=== PATIENT | male | born 1985 | race Caucasian/White ===

== ENCOUNTER 2023-01-02 19:58 | Emergency (ER) | payer BC, OTHER ==
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
[2023-01-02 20:30] LABS: Absolute Neutrophil Ct (ANC) 9.68 x10^3/uL (1.4-6.9); BASOPHIL % 0.4 % (0.0-0.4); Basophil (Absolute #) 0.05 x10^3/uL (0-0.4); Eosinophil % 0.3 % (0.00-5.0); Eosinophil (Absolute #) 0.04 x10^3/uL (0-0.5); Hematocrit 47.2 % (42-50); Hemoglobin 16.2 g/dL (12.5-18.0); IMMATURE GRAN # 0.04 x10^3u/L (0.00-0.03); IMMATURE GRAN % 0.3 % (0.00-0.4); Lymphocyte (Absolute #) 1.36 x10^3/uL (1.0-4.6); Lymphocytes % 11.6 % (24.0-44.0); Mean Corpuscular Hemoglobin 28.8 pg (26-32); Mean Corpuscular Hgb Concent. 34.3 g/dL (32-36); Mean Platelet Volume 9.2 fL (7.5-11.0); Monocyte (Absolute #) 0.51 x10^3/uL (0.0-1.3); Monocytes % 4.4 % (0.0-12.0); Platelet Count 297 x10^3/uL (150-450); Red Blood Count 5.62 x10^6/uL (4.1-5.6); Red Cell Distribution Width 12.3 % (11.5-14.0); White Blood Count 11.7 x10^3/uL (4.0-10.5)
[2023-01-02 20:37] LABS: ALBUMIN 4.9 g/dL (3.5-5.0); ALKALINE PHOSPHATASE 95 U/L (38-126); ANION GAP 17.4 MEQ/L (5-15); BLOOD UREA NITROGEN 10 mg/dL (9-20); CHLORIDE 105 mmol/L (98-107); Calcium 9.2 mg/dL (8.4-10.2); Carbon Dioxide 21 mmol/L (22-30); Creatinine 1 0.79 mg/dL (0.66-1.25); EST GLOMERULAR FILTRATION RATE > 60.0 ML/MIN; Glucose 131 mg/dL (74-106); Potassium 3.3 mmol/L (3.5-5.1); SGOT/AST 41 U/L (17-59); SGPT/ALT 53 U/L (0-50); SODIUM 140 mmol/L (137-145); Total Protein 8.4 g/dL (6.3-8.2)
[2023-01-02 21:05] LABS: Appearance Clear (Clear); Bacteria None Seen /HPF (None Seen); Bilirubin Negative (Negative); Blood Negative (Negative); Epithelial Cells None Seen /HPF (None Seen); Glucose, Urine Negative (Negative); Ketones 15 (Negative); Leukocyte Esterase Negative (Negative); Nitrite Negative (Negative); Protein,Urine Dip Negative (Negative); RBC 0-2 /HPF (0-5); Urobilinogen 0.2 mg/dL (0.2); WBC 0-2 /HPF (0-5)
[2023-01-02 21:06] LABS: ADD URINE CULTURE? NO (NO)
[2023-01-02 21:17] LABS: Amphetamine,Urine NEGATIVE (NEGATIVE); Barbiturate,Urine NEGATIVE (NEGATIVE); Benzodiazepine,Urine NEGATIVE (NEGATIVE); Cocaine,Urine NEGATIVE (NEGATIVE); Methadone,Urine NEGATIVE (NEGATIVE); Opiate,Urine NEGATIVE (NEGATIVE); PCP,Urine NEGATIVE (NEGATIVE); THC,Urine NEGATIVE (NEGATIVE)
[2023-01-02 21:37] VITALS: BP 119/86; PULSE 92; O2SAT 98
--- NOTE | 2023-01-03 08:57 | XRAY ---
Indication: Syncope. Dizziness, lightheaded, and tunnel vision. Multiple contiguous axial images obtained through the head without contrast. Comparison: None Normal appearing brain parenchyma, ventricles, and bony calvarium. Near complete opacification both ethmoid and both maxillary sinuses with fluid leveling. Mastoid air cells are clear. Impression: Pansinusitis. Otherwise normal CT head without contrast exam.
== END 2023-01-02 21:41 | disposition home or self-care (01) ==
LOC: ED 19:58
DX: R55 Syncope and collapse (principal); F41.9 Anxiety disorder, unspecified; Z63.0 Problems in relationship with spouse or partner; R07.9 Chest pain, unspecified; R06.02 Shortness of breath; R20.2 Paresthesia of skin
CPT/HCPCS: 36000; 36415; 70450; 80053; 80307; 81001; 84484; 85025; 93005; 94760; 99284

== ENCOUNTER 2023-07-25 04:10 | Observation (INO) | payer OTHER ==
[2023-07-25] MEDS ORDERED: ZOFRAN ODT 4 MG PO ONE (05:00)
[2023-07-25] MEDS ORDERED: Hydromorphone 1 mg/ml Injection IM ONE (05:00)
--- NOTE | 2023-07-25 05:00 | ERPHSYRPT ---
- History of Present Illness Historian: patient Exam Limitations: no limitations Patient Subjective Stated Complaint: RLQ pain since 1700 yesterday, steadily pain is getting worse, loose stools, Triage Nursing Assessment: pt ambulatory to bed by self with slow steady gait holding RLQ, pt alert and oriented x3, skin pwd, pt c/o RLQ pain since 1700 yesterday, pain has been steadily getting worse, pain is described at crampy/stabbing constant pain, pt states he has loose stools as well, denies any nausea, vomiting or fever, pt currently afebrile. Timing/Duration: yesterday Abdominal Pain Onset Location: RLQ Severity of Pain-Max: moderate Severity of Pain-Current: moderate Modifying Factors: Improves With: nothing Associated Symptoms: loss of appetite, other (Loose stools), No chest pain, No diarrhea, No fever/chills, No headache, No nausea, No shortness of breath, No vomiting, No weakness Previous symptoms: no prior history Hx Tetanus, Diphtheria Vaccination/Date Given: Yes Hx Influenza Vaccination/Date Given: No Hx Pneumococcal Vaccination/Date Given: No Immunizations Up to Date: No <GLENNY BARKER - Last Filed: 07/25/23 07:04> <KAYLAH LANG - Last Filed: 07/25/23 08:11> - History of Present Illness Time Seen by Provider: 07/25/23 04:35 Physician History: This is a 37-year-old white male patient of Dr. Emery who has no known drug allergies and takes no medications and presents with right lower quadrant abdominal pain that began at 1700 on 07/24/2023. The pain is described as st abbing crampy constant. The intensity has increased in the last 12 hours. There is been associated loose stools. He denies nausea vomiting. He has never had this pain before. Patient has never had abdominal surgeries in the past. (GLENNY BARKER) Allergies/Adverse Reactions: No Known Drug Allergies Allergy (Verified 07/25/23 04:21) Home Medications: No Reportable Medications [No Reported Medications] 01/02/23 [History] Travel Risk - International Travel Have you traveled outside of the country in past 3 weeks: No - Coronavirus Screening Are you exhibiting any of the following symptoms?: No Close contact with a COVID-19 positive Pt in past 14-21 Days: No - Vaccine Status Have you recieved a Covid-19 vaccination: No <GLENNY BARKER - Last Filed: 07/25/23 07:04> - Review of Systems Constitutional: No Symptoms Eyes: No Symptoms Ears, Nose, & Throat: No Symptoms Respiratory: No Symptoms Cardiac: No Symptoms Abdominal/Gastrointestinal: Abdominal Pain, Appetite Changes (Loose stools), Other, No Nausea, No Vomiting, No Diarrhea, No Constipation Genitourinary Symptoms: No Symptoms Musculoskeletal: No Symptoms Skin: No Symptoms Neurological: No Symptoms Psychological: No Symptoms Endocrine: No Symptoms Hematologic/Lymphatic: No Symptoms Immunological/Allergic: No Symptoms All Other Systems: Reviewed and Negative <GLENNY BARKER - Last Filed: 07/25/23 07:04> - Past Medical History Pertinent Past Medical History: Yes Other Medical History: collapsed lung at - Past Surgical History Past Surgical History: Yes Neuro Surgical History: No Pertinent History Cardiac: No Pertinent History Respiratory: No Pertinent History Gastrointestinal: No Pertinent History Genitourinary: No Pertinent History Musculoskeletal: No Pertinent History Male Surgical History: Vasectomy Other Surgical History: collapsed lung at , - Social History Smoking Status: Never smoker Exposure to second hand smoke: No Drug Use: none Patient Lives Alone: No <GLENNY BARKER - Last Filed: 07/25/23 07:04> - Physical Exam General Appearance: no apparent distress, alert, anxiety, thin Eye Exam: PERRL/EOMI, eyes nml inspection Ears, Nose, Throat Exam: normal ENT inspection, moist mucous membranes Neck Exam: normal inspection, non-tender, supple, full range of motion Respiratory Exam: normal breath sounds, lungs clear, airway intact, No chest tenderness, No respiratory distress Cardiovascular Exam: regular rate/rhythm, normal heart sounds, normal peripheral pulses Gastrointestinal/Abdomen Exam: soft, normal bowel sounds, tenderness (Right lower quadrant to palpation), guarding (Right lower quadrant to palpation), rebound (Right lower quadrant to palpation), other (Referred pain to right lower quadrant when palpating left lower quadrant) Back Exam: normal inspection, normal range of motion, No CVA tenderness, No vertebral tenderness Extremity Exam: normal inspection, normal range of motion, pelvis stable Neurologic Exam: alert, oriented x 3, cooperative, 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 as tested, normal mood/affect, nml cerebellar function, nml station & gait, sensation nml Skin Exam: normal color, warm, dry Lymphatic Exam: No adenopathy SpO2 Interpretation: normal SpO2: 100 O2 Delivery: Room Air <GLENNY BARKER - Last Filed: 07/25/23 07:04> - Nursing Vital Signs Nursing Vital Signs: Initial Vital Signs Temperature 97.0 F 07/25/23 04:23 Pulse Rate 63 07/25/23 04:23 Respiratory Rate 18 07/25/23 04:23 Blood Pressure 119/72 07/25/23 04:23 O2 Sat by Pulse Oximetry 100 07/25/23 04:23 Pain Scale Pain Intensity 2 - Course Nursing assessment & vital signs reviewed: Yes <GLENNY BARKER - Last Filed: 07/25/23 07:04> - CT Exams Abdomen/Pelvis CT Interpretation: Tele-radiologist Report (The appendix is slightly dilated measuring 8 to 10 mm with subtle inflammation.) <KAYLAH LANG - Last Filed: 07/25/23 08:11> Ordered Tests: Active Orders 24 hr Category Date Time Status IV Insertion STAT Care 07/25/23 05:27 Active ABDOMEN AND PELVIS W/0 CONTRAS [CT] Stat Exams 07/25/23 05:00 Completed AMYLASE Stat Lab 07/25/23 05:35 Completed CBC W DIFF Stat Lab 07/25/23 05:35 Completed CMP Stat Lab 07/25/23 05:35 Completed CULTURE,URINE Stat Lab 07/25/23 05:37 Received LIPASE Stat Lab 07/25/23 05:35 Completed Lactic Acid Stat Lab 07/25/23 05:35 Completed UA W/RFX UR CULTURE Stat Lab 07/25/23 05:37 Completed Medication Summary Discontinued Medications Generic Name Dose Route Start Last Admin Trade Name Freq PRN Reason Stop Dose Admin Hydromorphone HCl 1 mg 07/25/23 05:00 07/25/23 05:29 Hydromorphone 1 Mg/1ml Inj IM 07/25/23 05:01 Not Given STAT ONE Hydromorphone HCl Confirm 07/25/23 05:22 Hydromorphone 1 Mg/1ml Inj Administered 07/25/23 05:23 Dose 1 mg .ROUTE .STK-MED ONE Hydromorphone HCl 1 mg 07/25/23 05:27 07/25/23 05:29 Hydromorphone 1 Mg/1ml Inj IV 07/25/23 05:28 1 mg STAT ONE Administration Sodium Chloride 1,000 mls @ 999 mls/hr 07/25/23 05:27 07/25/23 06:57 Sodium Chloride 0.9% 1000 Ml IV 07/25/23 06:27 Infused .Q1H1M STA Infusion Piperacillin Sod/Tazobactam 100 mls @ 200 mls/hr 07/25/23 07:31 07/25/23 07:36 Sod 3.375 gm/ Sodium Chloride IV 07/25/23 08:00 200 mls/hr STAT ONE Administration Sodium Chloride Confirm 07/25/23 07:35 Sodium Chloride 100ml Mini-Bag Plus Administered 07/25/23 07:36 Dose 100 mls @ ud IV .STK-MED ONE Ondansetron HCl 4 mg 07/25/23 05:00 07/25/23 05:29 Zofran 4 Mg/Udtablet Orally Disintegrating PO 07/25/23 05:01 Not Given STAT ONE Ondansetron HCl Confirm 07/25/23 05:22 Zofran 4 Mg/Udtablet Orally Disintegrating Administered 07/25/23 05:23 Dose 4 mg .ROUTE .STK-MED ONE Ondansetron HCl 4 mg 07/25/23 05:27 07/25/23 05:29 Ondansetron Hcl 4 Mg/2 Ml Vial IV 07/25/23 05:28 4 mg STAT ONE Administration Piperacillin Sod/Tazobactam Sod Confirm 07/25/23 07:34 Piperacillin/Tazobactam Sodium 3.375 Gm Vial Administered 07/25/23 07:35 Dose 3.375 gm IV .STK-MED ONE Lab/Rad Data: Laboratory Result Diagrams 07/25/23 05:35 07/25/23 05:35 Laboratory Results 07/25/23 07/25/23 07/25/23 Range/Units 05:37 05:35 05:35 WBC (4.0-10.5) x10^3/uL RBC (4.1-5.6) x10^6/uL Hgb (12.5-18.0) g/dL Hct (42-50) % MCV (78-100) fL MCH (26-32) pg MCHC (32-36) g/dL RDW (11.5-14.0) % Plt Count (150-450) x10^3/uL MPV (7.5-11.0) fL Gran % (36.0-66.0) % Immature Gran % (Auto) (0.00-0.4) % Nucleat RBC Rel Count (0.00-0.1) % Eos # (Auto) (0-0.5) x10^3/uL Immature Gran # (Auto) (0.00-0.03) x10^3u/L Absolute Lymphs (auto) (1.0-4.6) x10^3/uL Absolute Monos (auto) (0.0-1.3) x10^3/uL Absolute Nucleated RBC (0.00-0.01) x10^3u/L Lymphocytes % (24.0-44.0) % Monocytes % (0.0-12.0) % Eosinophils % (0.00-5.0) % Basophils % (0.0-0.4) % Absolute Granulocytes (1.4-6.9) x10^3/uL Basophils # (0-0.4) x10^3/uL Sodium 140 (137-145) mmol/L Potassium 4.1 (3.5-5.1) mmol/L Chloride 108 H (98-107) mmol/L Carbon Dioxide 21 L (22-30) mmol/L Anion Gap 14.4 (5-15) MEQ/L BUN 19 (9-20) mg/dL Creatinine 0.78 (0.66-1.25) mg/dL Estimated GFR > 60.0 ML/MIN Glucose 132 H (74-106) mg/dL Lactic Acid (0.4-2.0) Calcium 9.2 (8.4-10.2) mg/dL Total Bilirubin 0.40 (0.2-1.3) mg/dL AST 36 (17-59) U/L ALT 51 H (0-50) U/L Alkaline Phosphatase 87 (38-126) U/L Serum Total Protein 7.1 (6.3-8.2) g/dL Albumin 4.3 (3.5-5.0) g/dL Amylase 50 (30-110) U/L Lipase 66 (23-300) U/L Urine Color Yellow (Yellow) Urine Appearance Turbid A (Clear) Urine pH 7.5 (4.6-8.0) Ur Specific [place] 1.020 (1.005-1.030) Urine Protein Negative (Negative) Urine Glucose (UA) Negative (Negative) mg/dL Urine Ketones 15 A (Negative) Urine Blood Negative (Negative) Urine Nitrite Negative (Negative) Urine Bilirubin Negative (Negative) Urine Urobilinogen 1.0 A (0.2) mg/dL Ur Leukocyte Esterase Negative (Negative) U Hyaline Cast (Auto) NONE SEEN (0-2) /LPF Urine Microscopic RBC 0-2 (0-5) /HPF Urine Microscopic WBC 0-2 (0-5) /HPF Ur Epithelial Cells None Seen (None Seen) /HPF Urine Bacteria Few A (None Seen) /HPF Urine Culture Reflexed YES (NO) 07/25/23 07/25/23 Range/Units 05:35 05:35 WBC 12.9 H (4.0-10.5) x10^3/uL RBC 5.06 (4.1-5.6) x10^6/uL Hgb 14.7 (12.5-18.0) g/dL Hct 44.2 (42-50) % MCV 87.4 (78-100) fL MCH 29.1 (26-32) pg MCHC 33.3 (32-36) g/dL RDW 12.3 (11.5-14.0) % Plt Count 245 (150-450) x10^3/uL MPV 9.4 (7.5-11.0) fL Gran % 84.2 H (36.0-66.0) % Immature Gran % (Auto) 0.5 H (0.00-0.4) % Nucleat RBC Rel Count 0.0 (0.00-0.1) % Eos # (Auto) 0.16 (0-0.5) x10^3/uL Immature Gran # (Auto) 0.06 H (0.00-0.03) x10^3u/L Absolute Lymphs (auto) 1.16 (1.0-4.6) x10^3/uL Absolute Monos (auto) 0.59 (0.0-1.3) x10^3/uL Absolute Nucleated RBC 0.00 (0.00-0.01) x10^3u/L Lymphocytes % 9.0 L (24.0-44.0) % Monocytes % 4.6 (0.0-12.0) % Eosinophils % 1.2 (0.00-5.0) % Basophils % 0.5 (0.0-0.4) % Absolute Granulocytes 10.85 H (1.4-6.9) x10^3/uL Basophils # 0.06 (0-0.4) x10^3/uL Sodium (137-145) mmol/L Potassium (3.5-5.1) mmol/L Chloride (98-107) mmol/L Carbon Dioxide (22-30) mmol/L Anion Gap (5-15) MEQ/L BUN (9-20) mg/dL Creatinine (0.66-1.25) mg/dL Estimated GFR ML/MIN Glucose (74-106) mg/dL Lactic Acid 1.8 (0.4-2.0) Calcium (8.4-10.2) mg/dL Total Bilirubin (0.2-1.3) mg/dL AST (17-59) U/L ALT (0-50) U/L Alkaline Phosphatase (38-126) U/L Serum Total Protein (6.3-8.2) g/dL Albumin (3.5-5.0) g/dL Amylase (30-110) U/L Lipase (23-300) U/L Urine Color (Yellow) Urine Appearance (Clear) Urine pH (4.6-8.0) Ur Specific [place] (1.005-1.030) Urine Protein (Negative) Urine Glucose (UA) (Negative) mg/dL Urine Ketones (Negative) Urine Blood (Negative) Urine Nitrite (Negative) Urine Bilirubin (Negative) Urine Urobilinogen (0.2) mg/dL Ur Leukocyte Esterase (Negative) U Hyaline Cast (Auto) (0-2) /LPF Urine Microscopic RBC (0-5) /HPF Urine Microscopic WBC (0-5) /HPF Ur Epithelial Cells (None Seen) /HPF Urine Bacteria (None Seen) /HPF Urine Culture Reflexed (NO) - Progress Progress: pain not gone completely <BARKER,GLENNY F. - Last Filed: 07/25/23 07:04> - Progress Discussed with Dr.: Kim Espitia (Case discussed with at 8:04 AM. , hospitalist, accepts admission to observation) Counseled pt/family regarding: lab results <KAYLAH LANG - Last Filed: 07/25/23 08:11> - Progress Progress Note: 07/25/23 05:12 This patient's medical issue is 1 of moderate complexity. Level of complexity and the work-up performed is based on the review of the patient's past medical history, review of the patient's medication list, review of the patient's drug allergy list, history of present illness and physical findings on examination. The work-up of this patient includes CBC, CMP, amylase, lipase, urinalysis and CAT scan of the abdomen pelvis without contrast. The nurses state that they attempted [address] an intravenous line. At this point we will provide him with intramuscular Dilaudid and Zofran 4 mg ODT. We will perform the CAT scan of the abdomen pelvis. If there is a positive surgical finding, we will need to reattempt placement of an intravenous line and provide the patient with intravenous fluid and intravenous antibiotics. This was discussed with the patient as well. 07/25/23 07:05 Transfer care this patient to Dr. Lang at shift change. He will follow-up on the CAT scan results and make final disposition. (GLENNY BARKER) Patient endorsed to Dr. Lang at approximately [address] Lang advised to follow- up on pending CT abdomen pelvis. CT abdomen pelvis resulted indicating an appendicitis with an appendicolith. Patient reassessed. He is comfortable. Patient declined additional pain medication. Vital stable Zosyn antibiotic ordered. Case discussed with at 7:19am who advises admission to medical service with general surgery on consultation. We are currently awaiting return call from medical service/hospitalist 07/25/23 07:32 Case discussed with at 8:04 AM for admission. accepts admission to observation at [facility] 07/25/23 08:04 (KAYLAH LANG) Medical Desision Making - Diagnostic Testing Diagnostic test were ordered, analyzed, and reviewed by me: Yes <GLENNY BARKER - Last Filed: 07/25/23 07:04> - Departure Departure Disposition: Home Critical Care Time: No <GLENNY BARKER - Last Filed: 07/25/23 07:04> <KAYLAH LANG - Last Filed: 07/25/23 08:11> - Departure Clinical Impression: Abdominal pain, Appendicitis, Leukocytosis Condition: Stable Referrals: AMILCAR EMERY MD [Primary Care Provider] - Follow up/PCP as directed
[2023-07-25] MEDS ORDERED: Hydromorphone 1 mg/ml Injection ONE ×3 (05:22→15:57)
[2023-07-25] MEDS ORDERED: ZOFRAN ODT 4 MG ONE (05:22)
[2023-07-25] MEDS ORDERED: Sodium Chloride 0.9% 1000 ML 1,000 ML IV STA (05:27)
[2023-07-25] MEDS ORDERED: Zofran 4 MG/2 ML VIAL IV ONE (05:27)
[2023-07-25] MEDS ORDERED: Hydromorphone 1 mg/ml Injection IV ONE ×2 (05:27→08:22)
[2023-07-25 05:40] LABS: Absolute Neutrophil Ct (ANC) 10.85 x10^3/uL (1.4-6.9); BASOPHIL % 0.5 % (0.0-0.4); Basophil (Absolute #) 0.06 x10^3/uL (0-0.4); Eosinophil % 1.2 % (0.00-5.0); Eosinophil (Absolute #) 0.16 x10^3/uL (0-0.5); Hematocrit 44.2 % (42-50); Hemoglobin 14.7 g/dL (12.5-18.0); IMMATURE GRAN # 0.06 x10^3u/L (0.00-0.03); IMMATURE GRAN % 0.5 % (0.00-0.4); Lymphocyte (Absolute #) 1.16 x10^3/uL (1.0-4.6); Mean Cell Volume 87.4 fL (78-100); Mean Corpuscular Hemoglobin 29.1 pg (26-32); Mean Corpuscular Hgb Concent. 33.3 g/dL (32-36); Mean Platelet Volume 9.4 fL (7.5-11.0); Monocyte (Absolute #) 0.59 x10^3/uL (0.0-1.3); Monocytes % 4.6 % (0.0-12.0); Neutrophil % 84.2 % (36.0-66.0); Platelet Count 245 x10^3/uL (150-450); Red Blood Count 5.06 x10^6/uL (4.1-5.6); Red Cell Distribution Width 12.3 % (11.5-14.0); White Blood Count 12.9 x10^3/uL (4.0-10.5)
[2023-07-25 05:49] LABS: Appearance Turbid (Clear); Bilirubin Negative (Negative); Blood Negative (Negative); Epithelial Cells None Seen /HPF (None Seen); Glucose, Urine Negative (Negative); Hyaline Casts NONE SEEN /LPF (0-2); Ketones 15 (Negative); Leukocyte Esterase Negative (Negative); Nitrite Negative (Negative); Ph 7.5 (4.6-8.0); Protein,Urine Dip Negative (Negative); RBC 0-2 /HPF (0-5); WBC 0-2 /HPF (0-5)
[2023-07-25 05:56] LABS: ALBUMIN 4.3 g/dL (3.5-5.0); ALKALINE PHOSPHATASE 87 U/L (38-126); ANION GAP 14.4 MEQ/L (5-15); BLOOD UREA NITROGEN 19 mg/dL (9-20); CHLORIDE 108 mmol/L (98-107); Calcium 9.2 mg/dL (8.4-10.2); Carbon Dioxide 21 mmol/L (22-30); Creatinine 1 0.78 mg/dL (0.66-1.25); EST GLOMERULAR FILTRATION RATE > 60.0 ML/MIN; Glucose 132 mg/dL (74-106); Potassium 4.1 mmol/L (3.5-5.1); SGOT/AST 36 U/L (17-59); SGPT/ALT 51 U/L (0-50); SODIUM 140 mmol/L (137-145); Total Protein 7.1 g/dL (6.3-8.2)
[2023-07-25 05:57] LABS: AMYLASE 50 U/L (30-110); LIPASE 66 U/L (23-300)
[2023-07-25 06:04] LABS: ADD URINE CULTURE? YES (NO); Bacteria Few /HPF (None Seen)
--- NOTE | 2023-07-25 07:08 | XRAY ---
CLINICAL HISTORY:RLQ ABD pain COMPARISON:None TECHNIQUE:CT scan of the abdomen and pelvis was performed without contrast. No oral contrast. Coronal and sagittal reconstructive images were also obtained. FINDINGS: Abdomen: The liver is normal in size and measures 13.5 cm. No focal or diffuse parenchymal abnormality. The portal vein, intrahepatic biliary radicals and the bile ducts are normal. The spleen, pancreas, adrenal glands are unremarkable. The kidneys are unremarkable. They are normal in size and shape. No calculi or hydronephrosis. The gallbladder is normal. No pericholecystic collection or radio dense calculi in the gall bladder. The ascending colon, the transverse colon, the descending colon, visualized small bowel loops are unremarkable. There is no evidence of significant enlargement of the mesenteric or retroperitoneal lymph nodes. Pelvis: The urinary bladder is unremarkable. The rectosigmoid colon is unremarkable. The prostate is unremarkable. The pelvic vasculature is unremarkable. No evidence of pelvic lymphadenopathy. The osseous structures in the pelvis, lower rib cage and lumbar spine show no abnormality. No lytic or sclerotic bone lesions. Slightly prominent appendix with appendicolith. IMPRESSION: The appendix is slightly dilated measuting 8 to 10mm with subtle inflammation. Findings are suggestive of appendicitis. Please correlate clinically. Electronically Signed by: Daryl Barr MD. (07/25/2023 06:06:26 END PACKER)
[2023-07-25] MEDS ORDERED: PIPERACILLIN/TAZOBACTAM 3.375 GM in Sodium Chloride 100ML MINI-BAG PLUS 100 ML IV ONE (07:31)
[2023-07-25] MEDS ORDERED: PIPERACILLIN/TAZOBACTAM IV ONE (07:34)
[2023-07-25] MEDS ORDERED: Sodium Chloride 100ML MINI-BAG PLUS 100 ML IV ONE (07:35)
--- NOTE | 2023-07-25 09:15 | PCM.HP ---
History of Present Illness - Chief Complaint Chief Complaint: Appendicitis Date: 07/25/23 History of Present Illness: is a 37 year old male with no pmhx presented to ER 07/25/23 with complaints of nausea, vomiting, and progressively worsening RLQ abdominal pain. Onset was approximately two days. Patient states that initially the pain was mild and he associated it with gas pain, but the pain became more severe, sharp and cramping in characteristic. He also endorses nausea and vomiting which started this morning. Denies fever, cough, sob, cp, DENSON, dizziness, or diarrhea. In ER patient was normotensive, afebrile, with spo2 @ 100% on RA. CT showing appendix slightly dilated measuting 8 to 10mm with subtle inflammation, with appendicolith, consistent with acute appendicitis. Lab findings remarkable for leukocytosis with wbc at 12.9, otherwise unremarkable. Urinalysis noting microscopic wbc, ketones, and urobilogen, culture reflexed and pending. Patient was given zosyn,dilaudid, zofran, and IVF bolus. PCP:JENNIFER Edgar Consulted: Leuking Code Status: Full code - Review of Systems Constitutional: Fatigue Eyes: No Symptoms Ears, Nose, & Throat: No Symptoms Respiratory: No Symptoms Cardiac: No Symptoms Abdominal/Gastrointestinal: Abdominal Pain, Nausea, Vomiting, Other (loose stools) Genitourinary Symptoms: No Symptoms Musculoskeletal: No Symptoms Skin: No Symptoms Neurological: No Symptoms Psychological: No Symptoms Endocrine: No Symptoms Hematologic/Lymphatic: No Symptoms Immunological/Allergic: No Symptoms Medications & Allergies Home Medications: Home Medication List No Reportable Medications [No Reported Medications] 01/02/23 [History Confirmed 07/25/23] Allergies/Adverse Reactions: Allergies Allergy/AdvReac Type Severity Reaction Status Date / Time No Known Drug Allergies Allergy Verified 07/25/23 04:21 - Past Medical History Past Medical History: Yes Comment: collapsed lung at - Past Surgical History Past Surgical History: Yes Neuro Surgical History: No Pertinent History Cardiac History: No Pertinent History Respiratory Surgery: No Pertinent History GI Surgical History: No Pertinent History Genitourinary Surgical Hx: No Pertinent History Musculskeletal Surgical Hx: No Pertinent History Male Surgical History: Vasectomy Other Surgical History: collapsed lung at , - Social History Smoking Status: Never smoker Exposure to second hand smoke: No Alcohol: Rarely Drug Use: none - Physical Exam Vital Signs: Vital Signs - 24 hr Temp Pulse Resp BP BP Pulse Ox 07/25/23 07:10 100 07/25/23 07:00 79 16 122/79 97 07/25/23 06:00 88 17 113/76 98 07/25/23 05:27 66 16 110/76 98 07/25/23 04:23 97.0 F 63 18 119/72 100 General Appearance: mild distress Neurologic Exam: alert, oriented x 3, cooperative Eye Exam: PERRL/EOMI Ears, Nose, Throat Exam: normal ENT inspection Neck Exam: normal inspection Respiratory Exam: normal breath sounds, lungs clear Cardiovascular Exam: regular rate/rhythm, normal heart sounds Gastrointestinal/Abdomen Exam: soft, normal bowel sounds, tenderness, guarding (RLQ TTP), rebound (referred pain to RLQ with palpation to LLQ) Rectal Exam: not done Back Exam: normal inspection Extremity Exam: normal inspection Skin Exam: normal color Results - Labs Lab/Micro Results: Lab Results-Last 24 Hours 07/25/23 07/25/23 07/25/23 Range/Units 05:35 05:35 05:35 WBC 12.9 H (4.0-10.5) x10^3/uL RBC 5.06 (4.1-5.6) x10^6/uL Hgb 14.7 (12.5-18.0) g/dL Hct 44.2 (42-50) % MCV 87.4 (78-100) fL MCH 29.1 (26-32) pg MCHC 33.3 (32-36) g/dL RDW 12.3 (11.5-14.0) % Plt Count 245 (150-450) x10^3/uL MPV 9.4 (7.5-11.0) fL Gran % 84.2 H (36.0-66.0) % Immature Gran % (Auto) 0.5 H (0.00-0.4) % Nucleat RBC Rel Count 0.0 (0.00-0.1) % Eos # (Auto) 0.16 (0-0.5) x10^3/uL Immature Gran # (Auto) 0.06 H (0.00-0.03) x10^3u/L Absolute Lymphs (auto) 1.16 (1.0-4.6) x10^3/uL Absolute Monos (auto) 0.59 (0.0-1.3) x10^3/uL Absolute Nucleated RBC 0.00 (0.00-0.01) x10^3u/L Lymphocytes % 9.0 L (24.0-44.0) % Monocytes % 4.6 (0.0-12.0) % Eosinophils % 1.2 (0.00-5.0) % Basophils % 0.5 (0.0-0.4) % Absolute Granulocytes 10.85 H (1.4-6.9) x10^3/uL Basophils # 0.06 (0-0.4) x10^3/uL Sodium (137-145) mmol/L Potassium (3.5-5.1) mmol/L Chloride (98-107) mmol/L Carbon Dioxide (22-30) mmol/L Anion Gap (5-15) MEQ/L BUN (9-20) mg/dL Creatinine (0.66-1.25) mg/dL Estimated GFR ML/MIN Glucose (74-106) mg/dL Lactic Acid 1.8 (0.4-2.0) Calcium (8.4-10.2) mg/dL Total Bilirubin (0.2-1.3) mg/dL AST (17-59) U/L ALT (0-50) U/L Alkaline Phosphatase (38-126) U/L Serum Total Protein (6.3-8.2) g/dL Albumin (3.5-5.0) g/dL Amylase 50 (30-110) U/L Lipase 66 (23-300) U/L Urine Color (Yellow) Urine Appearance (Clear) Urine pH (4.6-8.0) Ur Specific [place] (1.005-1.030) Urine Protein (Negative) Urine Glucose (UA) (Negative) mg/dL Urine Ketones (Negative) Urine Blood (Negative) Urine Nitrite (Negative) Urine Bilirubin (Negative) Urine Urobilinogen (0.2) mg/dL Ur Leukocyte Esterase (Negative) U Hyaline Cast (Auto) (0-2) /LPF Urine Microscopic RBC (0-5) /HPF Urine Microscopic WBC (0-5) /HPF Ur Epithelial Cells (None Seen) /HPF Urine Bacteria (None Seen) /HPF Urine Culture Reflexed (NO) 07/25/23 07/25/23 Range/Units 05:35 05:37 WBC (4.0-10.5) x10^3/uL RBC (4.1-5.6) x10^6/uL Hgb (12.5-18.0) g/dL Hct (42-50) % MCV (78-100) fL MCH (26-32) pg MCHC (32-36) g/dL RDW (11.5-14.0) % Plt Count (150-450) x10^3/uL MPV (7.5-11.0) fL Gran % (36.0-66.0) % Immature Gran % (Auto) (0.00-0.4) % Nucleat RBC Rel Count (0.00-0.1) % Eos # (Auto) (0-0.5) x10^3/uL Immature Gran # (Auto) (0.00-0.03) x10^3u/L Absolute Lymphs (auto) (1.0-4.6) x10^3/uL Absolute Monos (auto) (0.0-1.3) x10^3/uL Absolute Nucleated RBC (0.00-0.01) x10^3u/L Lymphocytes % (24.0-44.0) % Monocytes % (0.0-12.0) % Eosinophils % (0.00-5.0) % Basophils % (0.0-0.4) % Absolute Granulocytes (1.4-6.9) x10^3/uL Basophils # (0-0.4) x10^3/uL Sodium 140 (137-145) mmol/L Potassium 4.1 (3.5-5.1) mmol/L Chloride 108 H (98-107) mmol/L Carbon Dioxide 21 L (22-30) mmol/L Anion Gap 14.4 (5-15) MEQ/L BUN 19 (9-20) mg/dL Creatinine 0.78 (0.66-1.25) mg/dL Estimated GFR > 60.0 ML/MIN Glucose 132 H (74-106) mg/dL Lactic Acid (0.4-2.0) Calcium 9.2 (8.4-10.2) mg/dL Total Bilirubin 0.40 (0.2-1.3) mg/dL AST 36 (17-59) U/L ALT 51 H (0-50) U/L Alkaline Phosphatase 87 (38-126) U/L Serum Total Protein 7.1 (6.3-8.2) g/dL Albumin 4.3 (3.5-5.0) g/dL Amylase (30-110) U/L Lipase (23-300) U/L Urine Color Yellow (Yellow) Urine Appearance Turbid A (Clear) Urine pH 7.5 (4.6-8.0) Ur Specific [place] 1.020 (1.005-1.030) Urine Protein Negative (Negative) Urine Glucose (UA) Negative (Negative) mg/dL Urine Ketones 15 A (Negative) Urine Blood Negative (Negative) Urine Nitrite Negative (Negative) Urine Bilirubin Negative (Negative) Urine Urobilinogen 1.0 A (0.2) mg/dL Ur Leukocyte Esterase Negative (Negative) U Hyaline Cast (Auto) NONE SEEN (0-2) /LPF Urine Microscopic RBC 0-2 (0-5) /HPF Urine Microscopic WBC 0-2 (0-5) /HPF Ur Epithelial Cells None Seen (None Seen) /HPF Urine Bacteria Few A (None Seen) /HPF Urine Culture Reflexed YES (NO) - Radiology Impressions Radiology Exams & Impressions: Radiology Procedures Category Date Time Status ABDOMEN AND PELVIS W/0 CONTRAS [CT] Stat Exams 07/25/23 05:00 Completed Assessment/Plan (1) Appendicitis Current Visit: No Status: Acute Qualifiers: Appendicitis type: acute appendicitis Assessment & Plan: CT imaging reviewed as noted in HPI -General surgery consult, plan for surgical intervention this evening -NPO -IV abx zosyn -Pain management -CMP, CBC -IVF -Anti-emetics Code(s): K37 - UNSPECIFIED APPENDICITIS (2) Abdominal pain Current Visit: No Status: Acute Assessment & Plan: -secondary to appendicitis, see appendicitis Code(s): R10.9 - UNSPECIFIED ABDOMINAL PAIN (3) Leukocytosis Current Visit: No Status: Acute Assessment & Plan: -Most likely secondary to infection/appendicitis, See appendicitis Code(s): D72.829 - ELEVATED WHITE BLOOD CELL COUNT, UNSPECIFIED (4) Nausea & vomiting Current Visit: No Status: Acute Assessment & Plan: -Zofran prn Code(s): R11.2 - NAUSEA WITH VOMITING, UNSPECIFIED
[2023-07-25] MEDS ORDERED: Sodium Chloride 0.9% 1000 ML 1,000 ML IV SCH (09:30)
[2023-07-25] MEDS: Lactated Ringers 1,000 ML IV SCH (11:22)
[2023-07-25] MEDS ORDERED: Zofran 4 MG/2 ML VIAL IV PRN ×2 (12:36→23:01)
[2023-07-25] MEDS: PIPERACILLIN/TAZOBACTAM 3.375 GM in Sodium Chloride 100ML MINI-BAG PLUS 100 ML IV SCH ×2 (13:19→18:02)
[2023-07-25] MEDS ORDERED: DIPRIVAN 200 MG/20 ML IV ONE (14:06)
[2023-07-25] MEDS ORDERED: Quelicin Fliptop 200 MG/10 ML ONE (14:06)
[2023-07-25] MEDS ORDERED: Zemuron 100 MG/10 ML ONE (14:06)
[2023-07-25] MEDS ORDERED: Lactated Ringers 1,000 ML IV ONE (14:07)
[2023-07-25] MEDS ORDERED: Versed 2 MG/2 ML Injection ONE (14:07)
[2023-07-25] MEDS ORDERED: Sensorcaine 0.25% 10 ML ONE (14:07)
[2023-07-25] MEDS ORDERED: SUBLIMAZE 100 MCG/2 ML ONE (14:07)
[2023-07-25] MEDS ORDERED: Xylocaine-Mpf 2% 5 Ml Vial ONE (14:47)
[2023-07-25] MEDS ORDERED: PHENYLEPHRINE HCL ONE (15:03)
--- NOTE | 2023-07-25 15:14 | CONS ---
CONSULT DATE: 07/25/2023 HISTORY: This is a 37-year-old gentleman who is historically healthy having pain in right lower quadrant a day to day and a half. Family history of cancer on his mom's side and heart disease on his dad's side. PAST MEDICAL HISTORY: Denies chronic illnesses. He had a collapsed lung at . PAST SURGICAL HISTORY: Vasectomy in the past. Colonoscopy but they only found some internal hemorrhoids in the past. HOME MEDICATIONS: None on a regular basis. ALLERGIES: NKDA. FAMILY HISTORY: Negative in regards to this problem. SOCIAL HISTORY: No chewing and no smoking. REVIEW OF SYSTEMS: Fourteen systems reviewed per admission assessment. Negative or noncontributory as above. LAB DATA AND TESTS: White count 12.9, hemoglobin 14.7, PLT count 245,000. Liver function test fairly unremarkable. Lipase is normal. CT scan reviewed, dilated appendix, inflammation, appendicolith otherwise no other acute findings on CT scan. PHYSICAL EXAMINATION: He is afebrile. GENERAL: No acute distress. HEENT: Sclera nonicteric. EOMI. Oral mucous membranes moist. NECK: No JVD. CHEST: Equal excursion, nonlabored breathing. CVS: Regular rhythm and pulse. ABDOMEN: Soft, some localized tenderness right lower quadrant. EXTREMITIES: No cyanosis. NEURO: Alert. PSYCH: Appropriate mood and affect. IMPRESSION: Acute right lower quadrant pain, leukocytosis, history and physical exam findings and CT findings suggestive of acute appendicitis. I feel the patient would benefit from diagnostic laparoscopy, laparoscopic appendectomy. General risk of bleeding and infection, risk of trocar injury or hernia, risk of bowel, bladder, blood vessel, risk of subsequent intraabdominal abscess or fistula formation possibly requiring percutaneous or open drainage at a later date. General risk of anesthesia, deep vein thrombosis, pulmonary embolism, pneumonia, perioperative risk of aches, pains, bloating, constipation and/or loose stools, risk of ileus or obstruction, possibility of finding a normal appendix likely will remove incidentally and look for other etiology that might need taken care of surgically. Otherwise, general risk of anesthesia, deep vein thrombosis, pulmonary embolism, pneumonia but not limited to. Consent obtained. Will proceed with diagnostic laparoscopy with laparoscopic appendectomy possible open when OR time available.
[2023-07-25] MEDS ORDERED: BRIDION 200MG/2ML IV ONE (15:17)
[2023-07-25] MEDS ORDERED: TORAdol 30 mg Injection ONE (15:17)
[2023-07-25] MEDS ORDERED: Zofran 4 MG/2 ML VIAL ONE (15:17)
[2023-07-25] MEDS ORDERED: NORCO 5/325 MG PO PRN (17:16)
[2023-07-25] MEDS ORDERED: MORPHINE SULFATE 4 MG INJ IV PRN (17:45)
[2023-07-25] MEDS: Hydromorphone 1 mg/ml Injection IV PRN (21:06)
[2023-07-26] MEDS: PIPERACILLIN/TAZOBACTAM 3.375 GM in Sodium Chloride 100ML MINI-BAG PLUS 100 ML IV SCH ×2 (00:04→06:10)
[2023-07-26] MEDS: Hydromorphone 1 mg/ml Injection IV PRN ×2 (04:36→11:21)
[2023-07-26 04:52] LABS: Absolute Neutrophil Ct (ANC) 5.71 x10^3/uL (1.4-6.9); BASOPHIL % 0.4 % (0.0-0.4); Basophil (Absolute #) 0.03 x10^3/uL (0-0.4); Eosinophil % 1.2 % (0.00-5.0); Hematocrit 40.9 % (42-50); Hemoglobin 13.4 g/dL (12.5-18.0); IMMATURE GRAN # 0.03 x10^3u/L (0.00-0.03); IMMATURE GRAN % 0.4 % (0.00-0.4); Lymphocyte (Absolute #) 1.75 x10^3/uL (1.0-4.6); Lymphocytes % 21.7 % (24.0-44.0); Mean Corpuscular Hemoglobin 28.8 pg (26-32); Mean Corpuscular Hgb Concent. 32.8 g/dL (32-36); Mean Platelet Volume 9.7 fL (7.5-11.0); Monocyte (Absolute #) 0.46 x10^3/uL (0.0-1.3); Monocytes % 5.7 % (0.0-12.0); Neutrophil % 70.6 % (36.0-66.0); Platelet Count 199 x10^3/uL (150-450); Red Blood Count 4.65 x10^6/uL (4.1-5.6); Red Cell Distribution Width 12.7 % (11.5-14.0); White Blood Count 8.1 x10^3/uL (4.0-10.5)
[2023-07-26 05:08] LABS: ALBUMIN 3.7 g/dL (3.5-5.0); ALKALINE PHOSPHATASE 68 U/L (38-126); ANION GAP 9.3 MEQ/L (5-15); BLOOD UREA NITROGEN 10 mg/dL (9-20); CHLORIDE 107 mmol/L (98-107); Carbon Dioxide 26 mmol/L (22-30); Creatinine 1 0.72 mg/dL (0.66-1.25); EST GLOMERULAR FILTRATION RATE > 60.0 ML/MIN; Glucose 93 mg/dL (74-106); Potassium 3.6 mmol/L (3.5-5.1); SGOT/AST 29 U/L (17-59); SGPT/ALT 45 U/L (0-50); SODIUM 139 mmol/L (137-145); Total Protein 6.4 g/dL (6.3-8.2)
[2023-07-26] MEDS: Lactated Ringers 1,000 ML IV SCH (06:46)
[2023-07-26 07:14] VITALS: RESP 16
--- NOTE | 2023-07-26 07:42 | PCM.DS ---
Discharge Summary Date of Admission: 07/25/23 08:38 Date of Discharge: 07/26/23 Admitting Physician: FELICIA PATRICK MD Consults: Consults on Case 07/25/23 08:55 Consult Surgery ROUTINE Primary Care Provider: AMILCAR RODRIGUEZ DEVIN Allergies Allergies No Known Drug Allergies Allergy (Verified 07/25/23 04:21) Hospital Summary - Hospital Course Hospital Course: is a 37 year old male with no pmhx presented to ER 07/25/23 with complaints of nausea, vomiting, and progressively worsening RLQ abdominal pain, CT showing appendix slightly dilated measuting 8 to 10mm with subtle inflam mation, with appendicolith, consistent with acute appendicitis. Surgery consulted and intervention 07/26/23. Patient is PODS#1. Labs and vitals unremarkable, no pain, N/V, ambulating well, incision site CDI, able to tolerate a diet. Patient stable and ready for discharge. Post-op instructions given, patient to follow up in one week with surgery. No need for antibiotic on discharge. -New Diagnoses: Acute appendicitis -New Medications: Kendall -Medications Discontinued: None -Follow up: PCP/General surgery -Results pending: pathology -Outpatient testing to order: None -Latest Assessment and Plan: (1) Appendicitis Current Visit: No Status: Acute Qualifiers: Appendicitis type: acute appendicitis Assessment & Plan: CT imaging reviewed as noted in HPI -General surgery consult, plan for surgical intervention this evening -NPO -IV abx zosyn -Pain management -CMP, CBC -IVF -Anti-emetics Code(s): K37 - UNSPECIFIED APPENDICITIS (2) Abdominal pain Current Visit: No Status: Acute Assessment & Plan: -secondary to appendicitis, see appendicitis Code(s): R10.9 - UNSPECIFIED ABDOMINAL PAIN (3) Leukocytosis Current Visit: No Status: Acute Assessment & Plan: -Most likely secondary to infection/appendicitis, See appendicitis Code(s): D72.829 - ELEVATED WHITE BLOOD CELL COUNT, UNSPECIFIED (4) Nausea & vomiting Current Visit: No Status: Acute Assessment & Plan: -Zofran prn I spent 45 minutes [id number] with the patient on the day of discharge performing discharge exam, discussing hospital stay and discharge instructions with patient & caregivers, preparation of discharge records, prescriptions & referral forms and addressing any questions/concerns the patient had as documented above. - Vitals & Intake/Output Vital Signs: Vital Signs Temperature 97.0 F 07/26/23 07:14 Pulse Rate 70 07/26/23 07:14 Respiratory Rate 16 07/26/23 07:14 Blood Pressure 109/67 07/26/23 07:14 O2 Sat by Pulse Oximetry 97 07/26/23 07:14 Intake & Output: Intake & Output 07/23/23 07/24/23 07/25/23 07/26/23 11:59 11:59 11:59 11:59 Intake Total 0 3482 Output Total 50 Balance -50 3482 Weight 71.4 kg 71.4 kg - Lab Result Diagrams: 07/26/23 04:30 07/26/23 04:30 Lab Results-Last 24 Hrs: Lab Results-Last 24 Hours 07/26/23 07/26/23 Range/Units 04:30 04:30 WBC 8.1 (4.0-10.5) x10^3/uL RBC 4.65 (4.1-5.6) x10^6/uL Hgb 13.4 (12.5-18.0) g/dL Hct 40.9 L (42-50) % MCV 88.0 (78-100) fL MCH 28.8 (26-32) pg MCHC 32.8 (32-36) g/dL RDW 12.7 (11.5-14.0) % Plt Count 199 (150-450) x10^3/uL MPV 9.7 (7.5-11.0) fL Gran % 70.6 H (36.0-66.0) % Immature Gran % (Auto) 0.4 (0.00-0.4) % Nucleat RBC Rel Count 0.0 (0.00-0.1) % Eos # (Auto) 0.10 (0-0.5) x10^3/uL Immature Gran # (Auto) 0.03 (0.00-0.03) x10^3u/L Absolute Lymphs (auto) 1.75 (1.0-4.6) x10^3/uL Absolute Monos (auto) 0.46 (0.0-1.3) x10^3/uL Absolute Nucleated RBC 0.00 (0.00-0.01) x10^3u/L Lymphocytes % 21.7 L (24.0-44.0) % Monocytes % 5.7 (0.0-12.0) % Eosinophils % 1.2 (0.00-5.0) % Basophils % 0.4 (0.0-0.4) % Absolute Granulocytes 5.71 (1.4-6.9) x10^3/uL Basophils # 0.03 (0-0.4) x10^3/uL Sodium 139 (137-145) mmol/L Potassium 3.6 (3.5-5.1) mmol/L Chloride 107 (98-107) mmol/L Carbon Dioxide 26 (22-30) mmol/L Anion Gap 9.3 (5-15) MEQ/L BUN 10 (9-20) mg/dL Creatinine 0.72 (0.66-1.25) mg/dL Estimated GFR > 60.0 ML/MIN Glucose 93 (74-106) mg/dL Calcium 8.0 L (8.4-10.2) mg/dL Total Bilirubin 0.80 (0.2-1.3) mg/dL AST 29 (17-59) U/L ALT 45 (0-50) U/L Alkaline Phosphatase 68 (38-126) U/L Serum Total Protein 6.4 (6.3-8.2) g/dL Albumin 3.7 (3.5-5.0) g/dL - Radiology Exams Ordered Rad Exams-Entire Visit: Radiology Procedures Category Date Time Status ABDOMEN AND PELVIS W/0 CONTRAS [CT] Stat Exams 07/25/23 05:00 Completed Discharge Exam General Appearance: no apparent distress Neurologic Exam: alert, oriented x 3, cooperative Eye Exam: PERRL Ears, Nose, Throat Exam: normal ENT inspection Neck Exam: normal inspection Respiratory Exam: normal breath sounds, lungs clear Cardiovascular Exam: regular rate/rhythm, normal heart sounds Gastrointestinal/Abdomen Exam: soft, normal bowel sounds, other (3 puncture sites with gauze and tegaderm, CDI) Male Genitalia Exam: deferred Rectal Exam: deferred Extremity Exam: normal inspection Skin Exam: other (3 puncture sites with gauze and tegaderm, CDI) Final Diagnosis/Problem List - Final Discharge Diagnosis/Problem (1) Appendicitis Current Visit: No Status: Resolved Code(s): K37 - UNSPECIFIED APPENDICITIS (2) Abdominal pain Current Visit: No Status: Resolved Code(s): R10.9 - UNSPECIFIED ABDOMINAL PAIN (3) Leukocytosis Current Visit: No Status: Resolved Code(s): D72.829 - ELEVATED WHITE BLOOD CELL COUNT, UNSPECIFIED (4) Nausea & vomiting Current Visit: No Status: Resolved Code(s): R11.2 - NAUSEA WITH VOMITING, UNSPECIFIED - Discharge Disposition: Home, Self-Care Condition: Stable Prescriptions: New Hydrocodone/Acetaminophen [Hydrocodone-Acetamin 5-325 mg] 1 tab PO Q4HPRN PRN #20 tablet MDD 6 PRN Reason: Pain Follow up with: BAKARI BACH [COURTESY STAFF] - 1 Week LUZMARIA BAKER MD [ACTIVE STAFF] - 1 Week
--- NOTE | 2023-07-26 08:16 | OP ---
SURGERY DATE/TIME: 07/25/2023 1444 PREOPERATIVE DIAGNOSES: 1) Acute right lower quadrant pain. 2) Acute appendicitis. POSTOPERATIVE DIAGNOSES: Acute suppurative appendicitis. PROCEDURE: Laparoscopic appendectomy. SURGEON: Dr. Bassam Vazquez. QUAL[employer]OL MICROBIOLOGY SUPERVISOR: Kaden Dow, Medical Student III. ANESTHESIA: General. ESTIMATED BLOOD LOSS: Minimal. INDICATIONS: As noted above. Risks and benefits explained in detail but not limited to, consent obtained. DESCRIPTION OF PROCEDURE AND FINDINGS: The patient is taken to the operating room. General anesthesia induced. Abdomen prepped and draped in usual sterile fashion. After official time out and no disagreement with planned procedure, a transverse incision made at supraumbilical area. Fascia grasped and pulled upwards. Veress needle inserted and tested with saline. Pneumoperitoneum accomplished insufflating from opening pressure of 0 to 15. A 5 mm bladeless port and camera were inserted without difficulty followed by a lower midline 5 mm port and a 12 mm right upper quadrant port. Lateral peritoneal reflection of the cecum was incised with pinpoint and the hook cautery allowing the very inflamed suppurative appendix and cecum be mobilized upwards. Once this was accomplished, EndoGIA stapler fired across the base of the appendix and sequential reloads fired across the mesoappendix. The appendix is placed in the provided sac pulled free and passed off the 12 port. The fascial defect is closed with puncture closure device with #1 Vicryl with the suture temporarily tied. The port was replaced. Copious amount of irrigation accomplished in the right lower quadrant, pelvis and along the right gutter area until clear. Staple line is intact. No sign of any leakage. The mesoappendix is intact. No signs of any active bleeding. The last couple feet of the ileum were unremarkable. No signs of any Meckel's at this point. Pneumoperitoneum decompressed. The fascial defect and 12 site closed with #1 Vicryl. The wound is irrigated out. Skin incision closed with 4-0 Vicryl. 0.25% Marcaine local injected along the skin incision fascial defect. The patient tolerated the procedure well. There were no immediate complications. Findings discussed with the family out in the waiting area.
[2023-07-26 13:48] VITALS: BP 120/73; PULSE 92; TEMP 98; O2SAT 95
== END 2023-07-26 13:15 | disposition home or self-care (01) ==
LOC: ED 04:10 → MED SURG 08:38
PROVIDERS: ADMIT Internal Medicine; ATTEND Internal Medicine
DX: K37 Unspecified appendicitis (principal); R10.9 Unspecified abdominal pain; D72.829 Elevated white blood cell count, unspecified; R11.2 Nausea with vomiting, unspecified; Z20.828 Contact with and (suspected) exposure to other viral communicable diseases
CPT/HCPCS: 36000; 36415; 44970; 74176; 80053; 81001; 82150; 83605; 83690; 85025; 87086; 96365; 96374; 96375; 96376; 99285; Q3014; G0378; J0330; J1170; J1885; J2250; J2371; J2405; J2704; J3010; Q0162; A9270-GY